=== PATIENT | male | born 1995 | race Caucasian/White ===

== ENCOUNTER 2022-03-10 16:36 | Emergency (ER) | payer OTHER, SELFPAY ==
[~2022-03-10 16:36] MED LIST: Iopamidol 370 76% 100 ML VIAL ONE
[2022-03-10 16:57] LABS: #Basophils 0.1 thou/uL (0.0-0.2); #Eosinphils 0.2 thou/uL (0.0-0.7); #Lymphocytes 3.5 thou/uL (1.20-3.40); #Monocytes 0.7 thou/uL (0.11-0.59); #Neutrophils 6.5 thou/uL (1.40-6.50); %Basophils 0.6 % (0.0-1.0); %Eosinophils 1.5 % (0.0-10.0); %Lymphocytes 32.3 % (21.0-51.0); %Monocytes 6.3 % (0.0-10.0); %Neutrophils 59.4 % (42.0-75.0); Hemoglobin 14.8 g/dL (14.0-18.0); Mean Corpuscular HGB CONC 33.4 g/dL (32.0-36.0); Mean Corpuscular Volume 89.8 fL (78.0-98.0); Mean Platelet Volume 8.2 fL (7.4-10.4); Platelet Count 254 thou/uL (130-400); RBC Distribution Width 12.2 % (11.5-14.5); Red Blood Cell (RBC) Count 4.94 mill/uL (4.70-6.10); White Blood Cell (WBC) Count 10.9 thou/uL (4.8-10.8)
[2022-03-10] MEDS ORDERED: HYDROmorphone 0.5 MG/0.5 ML SYRINGE ONE ×2 (17:09→17:30)
[2022-03-10 17:12] LABS: ALT (SGPT) 21 U/L (8-55); AST (SGOT) 34 U/L (5-34); Albumin 4.3 g/dL (3.5-5.0); Alkaline Phosphatase 99 U/L (40-110); Anion Gap 17 mmol/L (10-20); BUN (Urea Nitrogen) 12 mg/dL (8.9-20.6); Bilirubin, Total 0.9 mg/dL (0.2-1.2); Calc. Creatinine Clearance 0 mL/min (70-130); Carbon Dioxide 21 mmol/L (22-29); Chloride 106 mmol/L (98-107); Estimated GFR 98; Globulin 2.8 g/dL (2.4-3.5); Glucose 131 mg/dL (70-105); Protein, Total 7.1 g/dL (6.0-8.3); Sodium 140 mmol/L (136-145)
[2022-03-10] MEDS ORDERED: Morphine 4 MG/ML VIAL ONE (18:14)
[2022-03-10] MEDS ORDERED: Ondansetron PF 4 MG/2 ML Vial ONE (18:14)
[2022-03-10 18:15] LABS: PTT 29.6 sec (22.9-36.1)
[2022-03-10 18:26] LABS: Magnesium 1.9 mg/dL (1.6-2.6); Phosphorus 2.7 mg/dL (2.3-4.7)
[2022-03-10 19:08] LABS: SARS-CoV-2 NAA Rapid Test Not Detected (NotDetected)
== END 2022-03-10 19:04 | disposition short-term general hospital (02) ==
LOC: ERS 16:36
DX: S09.90XA Unspecified injury of head, initial encounter (principal); S32.10XA Unspecified fracture of sacrum, initial encounter for closed fracture; S22.011A Stable burst fracture of first thoracic vertebra, initial encounter for closed fracture; S41.011A Laceration without foreign body of right shoulder, initial encounter; S90.812A Abrasion, left foot, initial encounter; S80.211A Abrasion, right knee, initial encounter; S90.512A Abrasion, left ankle, initial encounter; S30.811A Abrasion of abdominal wall, initial encounter; V89.2XXA Person injured in unspecified motor-vehicle accident, traffic, initial encounter
CPT/HCPCS: 27197; 36415; 70450; 71045; 71260; 72125; 72170; 74177; 80053; 83605; 83735; 84100; 85025; 85610; 85730; 86850; 86900; 86901; 90471; 96374; 96375; G0390; J1170; J2270; J2405; Q9967; U0002